=== PATIENT | female | born 1965 | race Caucasian/White ===

== ENCOUNTER → 2020-09-23 | Outpatient (CLI) | payer BC ==
--- NOTE | 2020-09-23 12:02 | Diagnostic Imaging Report ---
PROCEDURE: CT abdomen and pelvis without contrast. TECHNIQUE: Multiple contiguous axial images were obtained through the abdomen and pelvis without the use of intravenous contrast. Auto Exposure Controls were utilized during the CT exam to meet ALARA standards for radiation dose reduction. INDICATION: Left flank pain for 3 days. COMPARISON: None. FINDINGS: The heart is unremarkable. Focal ground glass opacities are seen in the medial aspect of the right lung base. There is hepatic steatosis. Focal fatty sparing is seen in the gallbladder fossa. The gallbladder is surgically absent. There is fatty atrophy of the pancreas without focal pancreatic lesion. The spleen, adrenal glands, and kidneys have a normal appearance. There is no pathologically enlarged mesenteric or retroperitoneal adenopathy. The bowel loops are nondilated. Diverticula are seen in the descending and sigmoid colon with pericolonic inflammatory changes in the proximal sigmoid colon. There is no free fluid or free air. No acute osseous abnormalities. The urinary bladder is decompressed. There is no free air, loculated collection, or adenopathy in the pelvis. IMPRESSION: 1. Acute uncomplicated diverticulitis involving the proximal sigmoid colon. 2. Hepatic steatosis. 3. No evidence of renal calculi or hydronephrosis. Dictated by: Dictated on workstation # [id number]
== END ==
LOC: RAD FS 11:34
PROVIDERS: ATTEND Family Medicine
DX: K76.0 Fatty (change of) liver, not elsewhere classified (principal); K57.32 Diverticulitis of large intestine without perforation or abscess without bleeding
CPT/HCPCS: 74176